=== PATIENT | male | born 1965 | race Caucasian/White ===

== ENCOUNTER 2025-07-08 13:16 | Outpatient (REF) | payer SELFPAY ==
--- OUTSIDE RECORDS SUMMARY | 2025-07-03 09:00 | XMS_ITS | Encounter Summary ---
Author Organization [employer] Address [address] [place] [address] 7[address] [place] [address] Care Team Providers Care Traffic Law Attorney Name Role Phone Vel Dueñas NP Primary Care Provider [phone] Reason for Referral * Imaging (Routine) - Pending Review Specialty Diagnoses / Procedures Referred By Noa caban Referred To Contact Cardiology Diagnoses Primary hypertension Pacemaker Procedures Transthoracic Echo (TTE) Complete Vel Dueñas NP [address] [place] [address] Phone: tel: fax: [address] [address] Phone: tel: fax: Referral ID Status Reason Start Date Expiration Date Visits Requested Visits Authorized [id number] Pending Review Perform Procedure 07/08/2026 1 1 * Consultation (Routine) - Pending Review Specialty Diagnoses / Procedures Referred By Noa caban Referred To Contact Cardiology Diagnoses Routine general medical examination at a [facility] care facility Pacemaker Vel Dueñas NP [address] [place] [address] Phone: tel: fax: Referral ID Status Reason Start Date Expiration Date Visits Requested Visits Authorized [id number] Pending Review Specialty Services Required 07/08/2026 1 1 * Consultation (Routine) - Pending Review Specialty Diagnoses / Procedures Referred By Noa caban Referred To Contact Gastroenterology Diagnoses Routine general medical examination at a health care facility Vel Dueñas NP [address] [place] [address] Phone: tel: fax: Referral ID Status Reason Start Date Expiration Date Visits Requested Visits Authorized [id number] Pending Review Specialty Services Required 07/08/2026 1 1 Reason for Visit * Reason Comments new pt Encounter Details Date Type Department Care Team (Late st Contact Info) Description 07/03/2025 9:00 AM EST Office Visit [facility] [address] [place] [address] Vel Dueñas NP [address] [place] [address] Routine general medical examination at a health care facility (Primary Dx); Primary hypertension; Other hyperlipidemia; Episode of recurrent major depressive disorder, unspecified depression episode severity (CMS/HCC); Encounter for immunization; Pacemaker; Seasonal allergic rhinitis due to pollen Social History Tobacco Use Types Packs/Day Years Used Date Smoking Tobacco: Never Assessed Housing Stability Answer Date Recorded What is your housing situation today? I have housing today, but I am worried about losing housing in the future 07/03/[address] you li ve. Do you have problems with any of the following? I am not sure 07/03/2025 Food Insecurity Answer Date Recorded Within the past 12 months, y ou worried that your food would run out before you got money to buy more: Sometimes True 2024 Within the past 12 months,th e food you bought just didn't last and you didn't have enough money to get more: Sometimes True 07/03/2025 Transportation Answer Date Recorded In the past 12 months, has l ack of transportation kept you from medical appts, meetings, work or from getting things needed for daily living? No 07/03/2025 Utilities Answer Date Recorded In the past 12 months, has t he electric, gas, oil or water company threatened to shut off services in your home? No 07/03/2025 Depression Answer Date Recorded Patient Health Questionnaire-2 Score 6 07/03/2025 Internet Access Answer Date Recorded Internet Access Q1 Yes 07/03/2025 Internet Access Q2 Not on file 07/03/2025 Sex and Gender Information Value Date Recorded Sex Assigned at Male 07/02/2025 2:11 PM EST Legal Sex Male 2:10 PM EST Gender Identity Male 07/03/2025 8:10 AM EST Sexual Orientation Straight 07/03/2025 8: 10 AM EST documented as of this encounter Last Filed Vital Signs Vital Sign Reading Time Taken Comments Blood Pressure 155/110 07/03/2025 9:19 AM EST Pulse 85 07/03/2025 9:19 AM EST Temperature 36.6 C (97.9 F) 07/03/2025 9:19 AM EST Respiratory Rate 18 07/03/2025 9:19 AM EST Oxygen Saturation 99% 07/03/2025 9:19 AM EST Inhaled Oxygen Concentration - - Weight 119 kg (263 lb) 07/03/2025 9:19 AM EST Height - - Body Mass Index - - documented in this encounter Functional Status * SBIRT - Alcohol Question Answer Date of Assessment Author How many times in the past y ear have you had 5 or more (for men) or 4 or more (for women) drinks in a day? 0 07/03/2025 10:30 AM EST Toussaint, Dh[place], [place] Score 0 07/03/2025 10:30 AM EST Serr ano, Dhaar, [place] * SBIRT - Drugs Question Answer Date of Assessment Author How many times in the past y ear have you used an illegal drug or used a prescription medication for non-medical reasons? 0 07/03/2025 10:30 AM EST Toussaint, Dhara, [place] Score 0 07/03/2025 10:30 AM EST Serr ano, Dhara, [place] * Over the past 2 weeks, how often have you been bothered by any of the following problems? Question Answer Date of Assessment Author Patient Health Questionnaire -2 Score 6 07/03/2025 10:28 AM EST Toussaint, Dhara, [place] * Little interest or pleasure in doing things Answer Date of Assessment Author Nearly every day 07/03/2025 10:28 AM EST Toussaint , Dhara, [place] * Feeling down, depressed, or hopeless Answer Date of Assessment Author Nearly every day 07/03/2025 10:28 AM Dhara Rosenberg [place] * Trouble falling or staying asleep, or sleeping too much Answer Date of Assessment Author Nearly every day 07/03/2025 10:28 AM Dhara Rosenberg [place] * Feeling tired or having little energy Answer Date of Assessment Author Nearly every day 07/03/2025 10:28 AM Dhara Rosenberg [place] * Poor appetite or overeating Answer Date of Assessment Author Nearly every day 07/03/2025 10:28 AM Dhara Rosenberg [place] * Feeling bad about yourself - or that you are a failure or have let yourself or your family down Answer Date of Assessment Author Nearly every day 07/03/2025 10:28 AM Dhara Rosenberg [place] * Trouble concentrating on things, such as reading the newspaper or watching television Answer Date of Assessment Author Nearly every day 07/03/2025 10:28 AM Dhara Rosenberg [place] * Moving or speaking so slowly that other people could have noticed? Or the opposite - being so fidgety or restless that you have been moving around a lot more than usual. Answer Date of Assessment Author More than half the days 07/03/2025 10:28 AM Dhara Rosenberg MA * Over the last 2 weeks, how often have you been bothered by any of the following problems? Question Answer Date of Assessment Author Feeling nervous, anxious, or on edge 3 07/03/2025 10:29 AM Dhara Rosenberg MA Not being able to stop or co ntrol worrying 3 07/03/2025 10:29 AM Dhara Rosenberg MA Worrying too much about diff erent things 3 07/03/2025 10:29 AM Dhara Rosenberg MA Trouble relaxing 3 07/03/2025 10:29 AM Dhara Rosenberg MA Being so restless that it is hard to sit still 3 07/03/2025 10:29 AM Dhara Rosenberg MA Becoming easily annoyed or irritable 3 07/03/2025 10:29 AM Dhara Rosenberg MA Feeling afraid as if somethi ng awful might happen 3 07/03/2025 10:29 AM Dhara Rosenberg MA JASMEET-7 Total Score 21 07/03/2025 10:29 AM Dhara Rosenberg MA documented as of this encounter Progress Notes * Vel Dueñas NP - 07/03/2025 9:00 AM EST Subjective: Yash Jack is a 59 y.o. male who presents to the office for a new patient visit. Previous PCP Dr. Carrillo. Interim history: Hypertension - History of high blood pressure, treated with lisinopril- reports consuming this medication at night - No major headaches, chest pain, shortness of breath, or dizziness reported; only minor symptoms Restless Leg Syndrome - History of restless leg syndrome, treated with ropinirole Bipolar II Depression - History of bipolar II depression, treated with sertraline - Declined to answer regarding thoughts of self-harm or harm to others - Under the care of a therapist; however, no psychiatric provider in place Hyperlipidemia - History of high cholesterol, treated with lovastatin - Denies muscle aches Allergic Rhinitis - History of seasonal allergies, including ragweed, cats, dogs, dust mites - Previously used Flonase during summer for allergy symptoms - Claritin D caused head like a cement block, discontinued - Zyrtec provided better symptom relief Pacemaker Placement - Pacemaker implanted approximately 7 years ago following unexplained fall and loss of consciousness - No recollection of the event leading to pacemaker placement Problem List[1] Surgical History[2] Pacemaker- implanted 7 years- fell in the apartment- syncope episode Family History[3] Hypertension- reports he unaware of his family history Diabetes- Colon cancer Social History Living situation: independently, Employment/Education: unemployed/ Some college Diet/exercise: regular/ no exercise Substance use: -alcohol - none -tobacco - weed gummies -opioids - none Sexual activity: yes; no concerns of STI's at this time Mental health: Patient Health Questionnaire-2 Score: 6 (07/03/2025 10:28 AM) Colonoscopy- never had one Seasonal allergies- Allergies[4] Medication- [facility] Review of Systems Constitutional: Negative for activity change, chills, fatigue and fever. HENT: Negative for congestion, ear discharge, ear pain, rhinorrhea, sinus pain, sneezing, sore throat and tinnitus. Eyes: Negative for pain, discharge and itching. Respiratory: Negative for cough, chest tightness, shortness of breath and wheezing. Cardiovascular: Negative for chest pain, palpitations and leg swelling. Gastrointestinal: Negative for abdominal pain, constipation, diarrhea, nausea and vomiting. Endocrine: Negative for polydipsia, polyphagia and polyuria. Genitourinary: Negative for decreased urine volume, difficulty urinating, dysuria, hematuria and urgency. Musculoskeletal: Negative for back pain, gait problem and joint swelling. Skin: Negative for color change, pallor and rash. Allergic/Immunologic: Positive for environmental allergies. Negative for food allergies. Neurological: Negative for dizziness, seizures, weakness and headaches. Psychiatric/Behavioral: Positive for sleep disturbance. Negative for agitation, confusion, decreased concentration and suicidal ideas. The patient is not nervous/anxious. Vitals: 07/03/25 0919 BP: (!) 155/110 BP Location: Right arm Patient Position: Sitting BP Cuff Size: Adult long Pulse: 85 Resp: 18 Temp: 97.9 ??F (36.6 ??C) TempSrc: Oral SpO2: 99% Weight: 263 lb (119 kg) Physical Exam Constitutional: General: He is awake. Appearance: Normal appearance. He is not ill-appearing, toxic-appearing or diaphoretic. HENT: Head: Normocephalic and atraumatic. Right Ear: Hearing, tympanic membrane, ear canal and external ear normal. No swelling or tenderness. There is no impacted cerumen. Tympanic membrane is not erythematous, retracted or bulging. Left Ear: Hearing, tympanic membrane, ear canal and external ear normal. No swelling or tenderness.There is no impacted cerumen. Tympanic membrane is not erythematous, retracted or bulging. Eyes: General: Lids are normal. Lids are everted, no foreign bodies appreciated. Extraocular Movements: Extraocular movements intact. Right eye: Normal extraocular motion and no nystagmus. Left eye: Normal extraocular motion and no nystagmus. Conjunctiva/sclera: Conjunctivae normal. Neck: Thyroid: No thyroid mass, thyromegaly or thyroid tenderness. Cardiovascular: Rate and Rhythm: Normal rate and regular rhythm. Heart sounds: Normal heart sounds, S1 normal and S2 normal. Pulmonary: Effort: Pulmonary effort is normal. No respiratory distress. Breath sounds: Normal breath sounds and air entry. No decreased air movement. No decreased breath sounds, wheezing or rhonchi. Abdominal: General: Abdomen is flat. Bowel sounds are normal. Palpations: Abdomen is soft. Tenderness: There is no abdominal tenderness. Hernia: No hernia is present. Musculoskeletal: Cervical back: Full passive range of motion without pain. Right lower leg: No edema. Left lower leg: No edema. Lymphadenopathy: Head: Right side of head: No submandibular, preauricular, posterior auricular or occipital adenopathy. Left side of head: No submandibular, preauricular, posterior auricular or occipital adenopathy. Cervical: No cervical adenopathy. Right cervical: No superficial, deep or posterior cervical adenopathy. Left cervical: No superficial, deep or posterior cervical adenopathy. Skin: General: Skin is warm. Coloration: Skin is not pale. Findings: No acne, bruising, ecchymosis, erythema or signs of injury. Neurological: Mental Status: He is alert and oriented to person, place, and time. Gait: Gait is intact. Psychiatric: Behavior: Behavior is cooperative. Assessment & Plan Routine general medical examination at a health care facility - New patient visit for comprehensive evaluation and establishment of care. - Ordered baseline laboratory tests including complete blood count, comprehensive metabolic panel, lipid panel,. Initiated consent to obtain previous medical records. Recommended completion of questionnaires. Referral to gastroenterology for colonoscopy evaluation. Referral to eye care center for ophthalmologic assessment. Discussed need for dental evaluation. Orders: CBC auto differential; Future TSH W/Reflex to FT4; Future Hepatitis B Surface Antibody, Qualitative; Future Hepatitis B surface antigen, EIA; Future Hepatitis B Core Antibody, Total; Future Hepatitis C Antibody with Reflex to HCV, RNA, Quantitative, Real-Time PCR; Future Referral to Gastroenterology; Future Referral to Cardiology; Future Primary hypertension - Hypertension managed with lisinopril. Blood pressure measured at 148/110 mmHg during visit. - Continued lisinopril therapy. Refilled lisinopril prescription. Advised monitoring and follow-up.Will review blood pressure control at subsequent visits. Orders: Transthoracic Echo (TTE) Complete; Future Blood Pressure kit; 1 kit Once per day. Other hyperlipidemia - Hyperlipidemia managed with lovastatin. - Will check a lipid panel Orders: CBC auto differential; Future Comprehensive Metabolic Panel; Future Hemoglobin A1c; Future Episode of recurrent major depressive disorder, unspecified depression episode severity (CMS/HCC) - Currently on Zoloft, informed of the need for an SNRI- Seroquel- declined at this time. - Informed this medication can contribute to manic episodes and the importance of ensuring he is on another regimen. - Will continue the conversation during the next visit - Ongoing therapy with current therapist. Encounter for immunization Orders: COVID-19 VACCINE [id number] (Comirnaty) 19 yrs + FLU VACCINE TRIVALENT [id number] (Fluarix) 19 yrs + Pacemaker - Pacemaker implanted approximately 7 years ago following syncope and unexplained fall. Will order a heart ultrasound - Will refer to the front desk team member Orders: Referral to Cardiology; Future Transthoracic Echo (TTE) Complete; Future Seasonal allergic rhinitis due to pollen Routine Screening and Health Maintenance Optometry: No Dental: Yes ASCVD risk: 59 y.o. male hypertension hyperlipidemia sedentary lifestyle Lab Review: orders written for new lab studies as appropriate; see orders Routine Cancer Screening Colon CA: will refer to the GI specialist Lung CA: PSA: Current Medications[5] Immunization History Administered Date(s) Administered Influenza injectable quadrivalent preservative free 04/28/2020 Influenza, IIV3, injectable 05/09/2020 Influenza, seasonal, injectable, preservative free 07/03/2025 Pfizer Covid-19 Vaccine 12+ 07/03/2025 Follow up in about 1 week (around 07/10/2025) for BP. [facility] STUMPER FELLER Attestation STUMPER FELLER Resident Attestation: Patient was seen and evaluated by Vel EMMANUEL, in collaboration with Tonia Marion MD whohas reviewed my assessment and plan. I, Tonia Marion MD , have reviewed the resident's note and agree with the assessment & plan of care as documented above. This note was drafted using Ambient (AI) technology. The patient/patient's guardian has been informed and has consented to the use of this technology: Yes [1] Patient Active Problem List Diagnosis Primary hypertension Other hyperlipidemia Episode of recurrent major depressive disorder (CMS/HCC) Pacemaker [2] No past surgical history on file. [3] No family history on file. [4] No Known Allergies [5] Current Outpatient Medications Medication Sig Dispense Refill fluticasone (Flonase) 50 MCG/ACT nasal spray Administer 2 sprays into each nostril Once per day. lisinopril 10 MG tablet Take 1 tablet by mouth Once per day. lovastatin (Mevacor) 40 MG tablet Take 40 mg by mouth at bedtime. rOPINIRole (Requip) 1 MG tablet Take 1 mg by mouth at bedtime. sertraline (Zoloft) 50 MG tablet Take 1 tablet by mouth Once per day. No current facility-administered medications for this visit. documented in this encounter Miscellaneous Notes * Assessment & Plan Note - Vel Dueñas NP - 07/03/2025 9:00 AM EST Associated Problem(s): Primary hypertension - Hypertension managed with lisinopril. Blood pressure measured at 148/110 mmHg during visit. - Continued lisinopril therapy. Refilled lisinopril prescription. Advised monitoring and follow-up.Will review blood pressure control at subsequent visits. Orders: Transthoracic Echo (TTE) Complete; Future Blood Pressure kit; 1 kit Once per day. * Assessment & Plan Note - Vel Dueñas NP - 07/03/2025 9:00 AM EST Associated Problem(s): Other hyperlipidemia - Hyperlipidemia managed with lovastatin. - Will check a lipid panel Orders: CBC auto differential; Future Comprehensive Metabolic Panel; Future Hemoglobin A1c; Future * Assessment & Plan Note - Vel Dueñas NP - 07/03/2025 9:00 AM EST Associated Problem(s): Episode of recurrent major depressive disorder (CMS/HCC) - Currently on Zoloft, informed of the need for an SNRI- Seroquel- declined at this time. - Informed this medication can contribute to manic episodes and the importance of ensuring he is on another regimen. - Will continue the conversation during the next visit - Ongoing therapy with current therapist. * Assessment & Plan Note - Vel Dueñas NP - 07/03/2025 9:00 AM EST Associated Problem(s): Pacemaker - Pacemaker implanted approximately 7 years ago following syncope and unexplained fall. Will order a heart ultrasound - Will refer to the front desk team member Orders: Referral to Cardiology; Future Transthoracic Echo (TTE) Complete; Future documented in this encounter Plan of Treatment Upcoming Encounters Date Type Department Care Team (Late st Contact Info) Description 07/17/2025 2:00 PM EST Office Visit [facility] [address] [place] [address] Vel Dueñas NP [address] [place], [place] [id number] Scheduled Orders Name Type Priority Associated Diagnoses Orde r Schedule CBC auto differential Lab Routine Routine general medical examination at a health care facility Other hyperlipidemia Expected: 07/08/2025 (Approximate), Expires: 07/08/2026 Comprehensive Metabolic Panel Lab Routine Other hyperlipidemia Expected: 07/08/2025 (Approximate), Expires: 07/08/2026 Hemoglobin A1c Lab Routine Other hyperlipidemia Expected: 07/08/2025 (Approximate), Expires: 07/08/2026 TSH W/Reflex to FT4 Lab Routine Routine general medical examination at a [facility] care facility Expected: 07/08/2025 (Approximate), Expires: 07/08/2026 Hepatitis B Surface Antibody, Qualitative Lab Routine Routine general medical examination at a health care facility Expected: 07/08/2025 (Approximate), Expires: 07/08/2026 Hepatitis B surface antigen, EIA Lab Routine Routine general medical examination at a health care facility Expected: 07/08/2025 (Approximate), Expires: 07/08/2026 Hepatitis B Core Antibody, Total Lab Routine Routine general medical examination at a [facility] care facility Expected: 07/08/2025 (Approximate), Expires: 07/08/2026 Hepatitis C Antibody with Reflex to HCV, RNA, Quantitative, Real-Time PCR Lab Routine Routine general medical examination at a health care facility Expected: 07/08/2025, Expires: 07/08/2026 Transthoracic Echo (TTE) Complete Echocardiography Routine Primary hypertension Pacemaker Expected: 07/08/2025 (Approximate), Expires: 07/08/2027 Scheduled Referrals Name Type Priority Associated Diagnoses Order Schedule Referral to Gastroenterology Outpatient Referral Routine Routine general medical examination at a health care facility Expected: 07/08/2025 (Approximate), Expires: 07/08/2026 Referral to Cardiology Outpatient Referral Routine Routine general medical examination at a health care facility Pacemaker Expected: 07/08/2025 (Approximate), Expires: 07/08/2026 documented as of this encounter Visit Diagnoses Diagnosis Routine general medical examination at a health care facility- Primary Primary hypertension Unspecified essential hypertension Other hyperlipidemia Episode of recurrent major depressive disorder, unspecified depression episode severity ([facility]) Encounter for immunization Pacemaker Cardiac pacemaker in situ Seasonal allergic rhinitis due to pollen documented in this encounter Care Teams Traffic Law Attorney Relationship Specialty Start Date End Date Vel Dueñas NP [address] [place] [id number] PCP - General Nurse Practitioner 07/03/25 documented as of this encounter
--- OUTSIDE RECORDS SUMMARY | 2025-07-08 15:20 | XMS_ITS | Clinical Summary ---
Author Organization [employer] Address [address] [place] [address] Care Team Providers Care Lime Kiln Worker Helper Name Role Phone LeanaYohanafrancesca ROBLES Primary Care Provider [phone] Allergies No known active allergies Medications sertraline (Zoloft) 50 MG tablet Take 1 tablet by mouth Once per day. 5 Active rOPINIRole (Requip) 1 MG tablet Take 1 mg by mouth at bedtime. 5 Active lovastatin (Mevacor) 40 MG tablet Take 40 mg by mouth at bedtime. 5 Active lisinopril 10 MG tablet Take 1 tablet by mouth Once per day. Active fluticasone (Flonase) 50 MCG/ACT nasal spray Administer 2 sprays into each nostril Once per day. 5 Active Blood Pressure kitIndications:Pr imary hypertension 1 kit Once per day. 1 kit Active Active Problems Problem Noted Date Diagnosed Date Primary hypertension 07/03/2025 Assessment & Plan (07/08/2025 9:19 AM EST): - Hypertension managed with lisinopril. Blood pressure measured at 148/110 mmHg during visit. - Continued lisinopril therapy. Refilled lisinopril prescription. Advised monitoring and follow-up. Will review blood pressure control at subsequent visits. Orders: Transthoracic Echo (TTE) Complete; Future Blood Pressure kit; 1 kit Once per day. Other hyperlipidemia 07/03/2025 Assessment & Plan (07/08/2025 9:19 AM EST): - Hyperlipidemia managed with lovastatin. - Will check a lipid panel Orders: CBC auto differential; Future Comprehensive Metabolic Panel; Future Hemoglobin A1c; Future Episode of recurrent major depressive disorder 1 09/03/2024 Assessment & Plan (07/08/2025 9:19 AM EST): - Currently on Zoloft, informed of the need for an SNRI- Seroquel- declined at this time. - Informed this medication can contribute to manic episodes and the importance of ensuring he is on another regimen. - Will continue the conversation during the next visit - Ongoing therapy with current therapist. Pacemaker 07/03/2025 Assessment & Plan (07/08/2025 9:19 AM EST): - Pacemaker implanted approximately 7 years ago following syncope and unexplained fall. Will order a heart ultrasound - Will refer to the lot worker Orders: Referral to Cardiology; Future Transthoracic Echo (TTE) Complete; Future Encounters Date Type Department Care Team Description 07/03/2025 9:00 AM EST Office Visit [facility] MED[facility]INE [address] [place] [address] Natacha Dueñas NP Routine general medical examination at a health care facility (Primary Dx); Primary hypertension; Other hyperlipidemia; Episode of recurrent major depressive disorder, unspecified depression episode severity (CMS/HCC); Encounter for immunization; Pacemaker; Seasonal allergic rhinitis due to pollen 07/03/2025 Travel from Last 3 Months Immunizations Immunization Administration Dates Next Due Influenza injectable quadrivalent preservative f ree 04/28/2020 Influenza, IIV3, injectable 05/09/2020 Influenza, seasonal, injectable, preservative fr ee 07/03/2025 Pfizer Covid-19 Vaccine 12+ 07/03/2025 Social History Tobacco Use Types Packs/Day Years [...] Orientation Straight 07/03/2025 8: 10 AM EST Last Filed Vital Signs Vital Sign Reading [...] - - Body Mass Index - - Plan of Treatment Upcoming Encounters Date Type Department Care Team (Late st Contact Info) Description 07/17/2025 2:00 PM EST Office Visit [facility] MEDICINE [address] [place] [address] Natacha Dueñas NP [address] [place] [address] Health Maintenance Due Date Last Done Comments CT Colonography 1966 Colonoscopy 1966 Colorectal Cancer Screening 1966 FIT DNA/Cologuard 1966 FIT 1966 FOBT 1966 HIV Screening 1966 Lipid Panel 1966 Sigmoidoscopy 1966 Tobacco Screening 1978 Hepatitis C Screening 1984 Hepatitis B Vaccines (1 of 3 - 19+ 3-dose series) 1985 Pneumococcal Vaccine: 50+ Years (1 of 1 - PCV) 2016 Zoster Vaccines (1 of 2) 2016 DTaP/Tdap/Td Vaccines (2 - T d or Tdap) 12/26/2022 12/26/2012 Alcohol/Substance Use Screening 07/03/2026 07/03/2025 Depression Screening 07/03/2026 07/03/2025, 07/03/2025 Disability Screening 07/03/2026 07/03/2025 SDOH Screening 07/03/2026 07/03/2025 RSV Patients and Patients Aged 60 years or older (1 - 1-dose 75+ series) 2041 COVID-19 Vaccine Completed 07/03/2025 Influenza Vaccine Completed 07/03/2025, 05/09/2020, 04/28/2020 HIB Vaccines Aged Out No longer eligi ble based on patient's age to complete this topic HPV Vaccines Aged Out No longer eligi ble based on patient's age to complete this topic Hepatitis A Vaccines Aged Out No long er eligible based on patient's age to complete this topic IPV Vaccines Aged Out No longer eligi ble based on patient's age to complete this topic Meningococcal B Vaccine Aged Out No l onger eligible based on patient's age to complete this topic Meningococcal Vaccine Aged Out No audi perlita eligible based on patient's age to complete this topic RSV under 20 months Aged Out No longe r eligible based on patient's age to complete this topic Rotavirus Vaccines Aged Out No longer eligible based on patient's age to complete this topic Insurance [facility] [employer]ARE < 65 Care Teams Lime Kiln Worker Helper Relationship Specialty Start Date End Date Natacha Dueñas NP [address] [place] [phone] PCP - General Nurse Practitioner 07/03/25
--- OUTSIDE RECORDS SUMMARY | 2025-07-08 15:20 | XMS_ITS | Encounter Summary ---
Author Organization [employer] Address [address] [place] [address] Care Team Providers Care Supervisor Fiberglass Boat Assembly Name Role Phone Natacha Dueñas LIGHT RAIL VEHICLE OPERATOR Primary Care Provider [phone] Encounter Details Date Type Department Care Team (Latest Contact Info) Description 07/03/2025 Travel Social History Tobacco Use Types Packs/Day Years [...] AM EST documented as of this encounter Plan of Treatment Upcoming Encounters Date Type Department Care Team (Late st Contact Info) Description 07/17/2025 2:00 PM EST Office Visit [facility] MED[facility]INE [address] [place] [address] Natacha Dueñas NP [address] [place] [address] documented as of this encounter Visit Diagnoses Not on filedocumented in this encounter Care Teams Supervisor [employer] Boat Assembly Relationship Specialty Start Date End Date Natacha Dueñas NP [address] [place] [id number] PCP - General Nurse Practitioner 07/03/25 documented as of this encounter
[2025-07-08 16:21] LABS: MANUAL DIFF FLAG NO
[2025-07-08 16:41] LABS: Hematocrit 45.7 % (42.0-52.0); Hemoglobin 15.2 g/dl (14.0-18.0); Imm Gran Abs Auto 0.02 X10*3/uL (0.00-0.03); Imm Gran Pct Auto 0.2 % (0.0-0.4); Lymphocytes Absolute Auto 2.0 X10*3/uL (1.2-4.9); Mean Corpuscular HGB Conc 33.3 g/dl (31.0-36.0); Mean Corpuscular Hemoglobin 30.3 pg (27.0-33.0); Mean Corpuscular Volume 91.0 fL (80.0-98.0); NRBC Abs Auto 0.000 X10*3/uL (0.0-0.012); NRBC Pct Auto 0.0 /100WBC (0.0-0.2); Platelet Count 259 X10*3/uL (160-400); Red Blood Count 5.02 X10*6/uL (4.60-5.80); White Blood Count 8.2 X10*3/uL (4.8-10.8)
[2025-07-08 18:03] LABS: Alanine Aminotransferase 22 U/L (0-40); Albumin Level 4.5 g/dL (3.5-5.0); Alkaline Phosphatase 114 U/L (39-117); Anion Gap 13 (12-20); Aspartate Amino Transferase 28 U/L (5-37); Blood Urea Nitrogen 17 mg/dL (9-16); Calcium 9.7 mg/dL (8.4-10.2); Carbon Dioxide 30 mmol/L (22-29); Chloride 106 mmol/L (96-108); Estimated Glomerular Filt Rate > 60; Potassium 4.6 mmol/L (3.3-5.1); Sodium 144 mmol/L (135-145); Total Protein 7.3 g/dL (6.5-8.0)
[2025-07-09 07:47] LABS: HBS Num1 2.16 mIU/mL (0-7.99); HBc Num1 0.12 S/CO (0.00-0.79); HBsAGNum1 0.34 S/CO (0.00-0.99); Hepatitis B Surface Antigen Negative (Negative); ~HepC Num1 0.17 S/CO (0.00-0.79); ~Hepatitis B Surface Antibody NONREACTIVE (Nonreactive); ~Hepatitis C Antibody Nonreactive (Nonreactive)
== END 2025-07-08 13:17 ==
LOC: HO.HHCL 13:16
DX: Z00.00 Encounter for general adult medical examination without abnormal findings (principal); E78.49 Other hyperlipidemia; Z13.1 Encounter for screening for diabetes mellitus
CPT/HCPCS: 36415; 80053; 83036; 84443; 85025; 86704; 86706; 86803; 87340